=== PATIENT | female | born 1975 | race African-American/Black ===

== ENCOUNTER → 2020-08-04 15:28 | Outpatient (CLI) | payer OTHER, SELFPAY ==
--- NOTE | ~2020-08-04 | MM_ITS ---
EXAMINATION: MM screening stu BI w [facility] HISTORY: Screening TECHNIQUE: Craniocaudal and mediolateral oblique 3-D tomosynthesis images were obtained and synthetic 2-D images were generated. CAD analysis was submitted and interpreted. COMPARISON: Comparison to multiple prior studies sequentially, with oldest reviewed study dated 04/11. BREAST PARENCHYMAL COMPOSITION: The breasts are heterogeneously dense, which may obscure small masses . FINDINGS: There is no evidence of suspicious mass, calcification, or architectural distortion to sugg est malignancy in either breast. There has been no suspicious interval change. IMPRESSION: 1. No mammographic evidence of malignancy. 2. Recommend routine screening mammography in one year. BI-RADS Category 1: Negative Reviewed, dictated and finalized at location A. INSTRUCTOR
== END ==
PROVIDERS: Visit Provider Obstetrics & Gynecology Gynecology
DX: Z12.31 Encounter for screening mammogram for malignant neoplasm of breast (principal)
CPT/HCPCS: 77063; 77067

== ENCOUNTER 2022-06-07 00:25 | Day surgery (SDC) | payer OTHER, SELFPAY ==
--- NOTE | 2022-06-07 09:51 | P.PNAN_ITS ---
Anes - Initial Pre Proc Eval Procedure: Operation Date: 06/07/22 11:30 Proposed Procedures p Screening Colonoscopy - Aguilar Jones MD Date/Time: 06/07/22 09:51 Surgeon: Aguilar Jones MD Pre Op Diagnosis: neoplasm screening Patient Data Age: 46 Gender: F Height: 1.63 m Weight: 79.5 kg Allergies Allergy/AdvReac Type Severity Reaction Status Date / Time shrimp Allergy Other Verified 06/07/22 10:24 Home Medications Medication Instructions Recorded Confirmed Type ascorbic acid (vitamin C) 500 mg 500 mg PO DAILY 05/29/22 06/07/22 History tablet cholecalciferol (vitamin D3) 25 25 mcg PO DAILY 05/29/22 06/07/22 History mcg (1,000 unit) tablet (Vitamin D3) methimazole 5 mg tablet 5 mg PO DAILY 2 months #60 tabs 06/04/22 06/07/22 Rx Patient hx anesthesia problems: none Family hx anesthesia problems: none Results Review: All pre-operative results and documents have been reviewed as part of the pre- operative evaluation. [facility] Past Medical History Medical History (Updated 06/07/22 @ 10:28 by Aguilar Jones MD) Anemia Hyperthyroidism Obesity Family History Family History Other Asthma Diabetes mellitus Family history of arthritis Family history of cardiovascular disease Family history of thyroid disease Hypertension Social History Social History (Updated 05/10/22 @ 10:51 by Sheryl Kerr) Smoking status: Never smoker Alcohol intake: current Alcohol use details: wine, every other week Substance use type: does not use Living arrangements: with family Spiritual care concerns: No Anes - Eval Final PreProcedure Day of Procedure 06/07/22 09:51 Patient weight: obese Heart: regular rate and rhythm Lungs: clear to auscultation and normal air movement Airway: Mallampati scale class II Neurological: alert and oriented Last oral intake: >/= 8 hours ASA classification: II Emergent: no Anesthetic plan: proceed Anesthesia type and monitoring: general GIVS Results Review: All pre-operative results and documents have been reviewed as part of the pre- operative evaluation. Informed Consent: The patient's anesthetic plan and its attendant risks and benefits were discussed with the patient/family/POA. Questions were solicited and answers provided to the satisfaction of the patient/family/POA.
[2022-06-07 10:15] VITALS: BP 121/72; PULSE 98; RESP 16; TEMP 36.2; O2SAT 98; BMI 30.1
--- NOTE | 2022-06-07 10:28 | PM.HPGS ---
History of Present Illness History of Present Illness Consent: Risks, benefits, and alternatives have been discussed and questions answered. Patient agrees to proceed with procedure. Chief complaint: neoplasm screening Narrative: Michelle Cross is a 46 year old female Presents for screening colonoscopy. Patient's current weight appetite and bowel movements are normal. Patient denies abdominal pain. She has had no bleeding. Family history is noncontributory. Patient presents today for neoplasia screening colonoscopy. [facility] Past Medical History Medical History (Updated 06/07/22 @ 10:28 by Aguilar Jones MD) Anemia Hyperthyroidism Obesity Family History Family History Other Asthma Diabetes mellitus Family history of arthritis Family history of cardiovascular disease Family history of thyroid disease Hypertension Social History Social History (Updated 05/10/22 @ 10:51 by Sheryl Kerr) Smoking status: Never smoker Alcohol intake: current Alcohol use details: wine, every other week Substance use type: does not use Living arrangements: with family Spiritual care concerns: No Meds Home Medications and Allergies Home Medications Medication Instructions Recorded Confirmed Type ascorbic acid (vitamin C) 500 mg 500 mg PO DAILY 05/29/22 06/07/22 History tablet cholecalciferol (vitamin D3) 25 25 mcg PO DAILY 05/29/22 06/07/22 History mcg (1,000 unit) tablet (Vitamin D3) methimazole 5 mg tablet 5 mg PO DAILY 2 months #60 tabs 06/04/22 06/07/22 Rx Allergies Allergy/AdvReac Type Severity Reaction Status Date / Time shrimp Allergy Other Verified 06/07/22 10:24 Assessment and Plan Assessment and plan (1) Encounter for screening colonoscopy: Code(s): Z12.11 - Encounter for screening for malignant neoplasm of colon Status: Acute Assessment and Plan: Patient presents today for screening colonoscopy. She appears to be at average risk for colon polyps. Further recommendations will be given after endoscopy.
[2022-06-07] MEDS: LACTATED RINGERS 1,000 ML 150 ML IV CONT (10:38)
[2022-06-07 12:01] VITALS: BP 118/71; PULSE 91; RESP 19; O2SAT 100
[2022-06-07 12:11] VITALS: BP 117/79; PULSE 87; RESP 20; O2SAT 100
[2022-06-07 12:21] VITALS: BP 124/77; PULSE 75; RESP 22; O2SAT 100
== END 2022-06-07 12:46 | disposition home or self-care (01) ==
PROVIDERS: PCP Family Medicine; Visit Provider Internal Medicine Gastroenterology
PROC: 0DJD8ZZ Inspection of Lower Intestinal Tract, Via Natural or Artificial Opening Endoscopic (ICD-10-PCS; CPT 45378; principal; 2022-06-07 11:30)
DX: Z12.11 Encounter for screening for malignant neoplasm of colon (principal); K64.8 Other hemorrhoids; E05.90 Thyrotoxicosis, unspecified without thyrotoxic crisis or storm; E66.9 Obesity, unspecified; Z68.30 Body mass index [BMI] 30.0-30.9, adult
CPT/HCPCS: 45378; J2704; J7120

== ENCOUNTER 2022-10-14 10:31 | Emergency (ER) | payer OTHER, SELFPAY ==
[2022-10-14 10:51] VITALS: BP 133/86; PULSE 84; RESP 16; TEMP 36.6; O2SAT 100
--- NOTE | 2022-10-14 11:05 | ED.GENADULT ---
HPI - General Adult General Chief complaint: Ear Stated complaint: COUGH/CONGESTION/EARACHE Source: patient and RN notes reviewed History of Present Illness HPI narrative: 47-year-old male presents to urgent care with complaints of congestion, runny nose, bilateral ear fullness and popping, and cough x9 days. Patient states her cough is worse at nighttime when she lays down. Patient reports chills a few days ago but nothing since. Denies any fevers. Denies any chest pain, shortness of breath, vomiting diarrhea, or sore throat. Patient has been taking Mucinex with moderate relief. Some parts of this dictation were generated by voice recognition software and may contain typographical and/or grammatical inaccuracies. Related Data Home Medications Medication Instructions Recorded Confirmed ascorbic acid (vitamin C) 500 mg 500 mg PO DAILY 05/29/22 10/14/22 tablet cholecalciferol (vitamin D3) 25 25 mcg PO DAILY 05/29/22 10/14/22 mcg (1,000 unit) tablet (Vitamin D3) Allergies Allergy/AdvReac Type Severity Reaction Status Date / Time hydrocodone Allergy Anxiety Verified 10/14/22 10:48 shrimp Allergy Hives Verified 08/08/22 09:04 Review of Systems Review of Systems: Pertinent positives and pertinent negatives per HPI. [facility] Past Medical History Medical History Anemia Hyperthyroidism Obesity Family History Family History Other Asthma Diabetes mellitus Family history of arthritis Family history of cardiovascular disease Family history of thyroid disease Hypertension Social History Social History Smoking status: Never smoker Alcohol intake: current Alcohol use details: wine, every other week Substance use type: does not use Living arrangements: with family Spiritual care concerns: No Comments At the time of my signature, I reviewed and agree with the nursing past medical, surgical, social, and family history. There is no relevant family history pertinent to the patient complaint. Exam Narrative: GENERAL: This is a well-nourished, well-developed patient, in no apparent distress. HEAD: normocephalic, atraumatic. EYES: PERRL. Sclera clear/white. Vision is grossly intact. EARS: External ears normal, auditory canals clear and without drainage, TMs normal without perforation. Hearing grossly intact. NOSE: External nose normal with Rhinorrhea and congestion. THROAT: Mucous membranes moist, posterior pharynx erythemic. No exudate noted. NECK: Neck supple, non-tender without lymphadenopathy, masses or thyromegaly. CARDIOVASCULAR: Regular rate and rhythm without murmurs, gallops, or rubs. RESPIRATORY: Clear to auscultation. Breath sounds equal bilaterally. No wheezes, rales, or rhonchi. GASTROINTESTINAL: Abdomen soft, non-tender, nondistended. Bowel sounds are active. No hepato-splenomegaly, or palpable masses. No guarding. SKIN: warm, intact with no suspicious lesions or rash, good texture and turgor. NEURO: awake, alert, and oriented to person, place and time. There were no obvious focal neurologic abnormalities. Course Course Level of Care: Express Care Visit Vital Signs Vital signs: Vital Signs Temperature 98 F 10/14/22 10:51 Pulse Rate 84 10/14/22 10:51 Respiratory Rate 16 10/14/22 10:51 Blood Pressure 133/86 10/14/22 10:51 Pulse Oximetry 100 10/14/22 10:51 Temperature 98 F 10/14/22 10:51 Pulse Rate 84 10/14/22 10:51 Respiratory Rate 16 10/14/22 10:51 Blood Pressure 133/86 10/14/22 10:51 Pulse Oximetry 100 10/14/22 10:51 reviewed Medical Decision Making MDM Narrative Medical decision making narrative: Return to urgent care or go to the ER for new or worsening symptoms. Avoid smoking/second-hand smoke. Continue to take Tylenol or Motrin for pain. Inc
== END 2022-10-14 11:20 | disposition home or self-care (01) ==
PROVIDERS: Emergency Provider Nurse Practitioner Family; PCP Family Medicine
DX: J40 Bronchitis, not specified as acute or chronic (principal); J01.90 Acute sinusitis, unspecified
CPT/HCPCS: 99213; G0463